=== PATIENT | female | born 1945 | race Caucasian/White ===

== ENCOUNTER 2017-08-12 16:42 | Emergency (ER) | payer MEDICARE ==
[2017-08-12] MEDS ORDERED: HYDROcodone/Acetaminophen 5/325 mg Tablet ONE (16:51)
[2017-08-12] MEDS ORDERED: Ketorolac Tromethamine 30 MG/ML VIAL ONE (17:49)
--- NOTE | 2017-08-12 19:15 | RAD ---
RIGHT ELBOW TWO VIEWS: 08/12/17 No fracture or joint effusion was seen. The bony structures appear intact. A small bony or calcific d ensity is seen overlapping the ulna on the lateral view. I doubt its current significance. Unless the patient has a laceration that would make one think of a foreign body here. IMPRESSION: No acute finding. POS: HOME
--- NOTE | 2017-08-12 19:39 | RAD ---
LEFT FOREARM TWO VIEWS 08/12/17 No acute fracture was appreciated. The radius and ulna appear intact. A small calcific or bony densit y overlapping the proximal ulna may be a soft tissue calcification. IMPRESSION: No acute findings. POS: HOME
--- NOTE | 2017-08-12 19:57 | RAD ---
LEFT SHOULDER THREE VIEWS: 08/12/17 The shoulder does not rotate between the two views and on the Y-view, the humeral head sits slightly anterior to the glenoid fossa suggesting a mild anterior subluxation. The area around the greater tub ercle is somewhat unusual in appearance, but further studies would be needed to better assess it. See CT report to follow. IMPRESSION: At least a mild anterior subluxation of the humeral head and possibly other bony pathology. See CT r eport to follow. POS: HOME
--- NOTE | 2017-08-12 20:00 | CT ---
CT OF THE LEFT SHOULDER 08/12/[address] of the shoulder was performed for evaluation of an abnormal plain radiograph. The radiograp h suggested an anterior subluxation of the shoulder and it was difficult to see the area around the g reater tubercle. Axial slices were acquired, then coronal and sagittal reconstructions were done. There is a fracture through the greater tubercle of the humerus and part of the fracture line goes ac ross the anatomical neck (not the surgical neck) of the humerus near the base of the head. There is no significant displacement of fracture fragments. The humeral head is no longer subluxed an d is sitting in the glenohumeral fossa as it should. The distal clavicle and scapula appear intact. IMPRESSION: 1. Fractures of the very proximal portions of the humerus, with no displacement. The fractures i nclude the greater tubercle and extends into the anatomical neck region. 2. Subluxation seen on plain films has reduced. There is currently a normal glenohumeral joint a ssociation. POS: HOME
== END 2017-08-12 18:35 | disposition home or self-care (01) ==
LOC: BURERS 16:42
DX: S42.252A Displaced fracture of greater tuberosity of left humerus, initial encounter for closed fracture (principal); E10.9 Type 1 diabetes mellitus without complications; E78.5 Hyperlipidemia, unspecified; I10 Essential (primary) hypertension; Z79.82 Long term (current) use of aspirin; Z79.4 Long term (current) use of insulin; Z79.899 Other long term (current) drug therapy; W17.89XA Other fall from one level to another, initial encounter
CPT/HCPCS: 36416; 96374; J1885